=== PATIENT | female | born 1955 | race Caucasian/White ===

== ENCOUNTER 2016-11-24 17:34 | Emergency (ER) | payer OTHER ==
[~2016-11-24] VITALS: Ht 154.9 cm; Wt 70.3 kg
[~2016-11-24 17:34] MED LIST: LEVAQUIN500 MG PO; SYNTHROID0.1 MG PO
[2016-11-24 17:55] VITALS: BP_SYST 142; BP_SYST 152; BP_DIAS 76; BP_DIAS 90
--- NOTE | 2016-11-24 20:52 | NUR ---
PT TAKEN TO BED 1
--- NOTE | 2016-11-24 21:03 | NUR ---
61Y/F PATIENT PRESENTS TO ED WITH C/O HEADACHE X 1 DAY . PT STATES HEADCHE STARTED LAST NIGHT WITH BLURRED VISION. DENIES N/V/D; SKIN IS PINK/WARM/DRY; AAOX4 WITH EVEN AND STEADY GAIT; LUNGS CLEAR BL; HR EVEN AND REGULAR; PT DENIES ANY FEVER, CP, SOB, OR COUGH AT THIS TIME; PATIENT STATES PAIN OF 5/10 AT THIS TIME; VSS; PATIENT POSITIONED FOR COMFORT; HOB ELEVATED; BEDRAILS UP X2; BED DOWN. ER MD MADE AWARE OF PT STATUS.
--- NOTE | 2016-11-24 21:08 | NUR ---
Dr. Kline evaluating patient at bedside.
[2016-11-24] MEDS ORDERED: MECLIZINE 25 MG TAB PO ONE (21:25)
[2016-11-24] MEDS ORDERED: traMADol 50 MG TAB PO ONE (21:25)
--- NOTE | 2016-11-24 21:48 | NUR ---
PT RETURN FROM CT
--- NOTE | 2016-11-24 22:25 | NUR ---
Patient discharged with v/s stable. Written and verbal after care instructions given and explained. Patient alert, oriented and verbalized understanding of instructions. Ambulatory with steady gait. All questions addressed prior to discharge. ID band removed. Patient advised to follow up with PMD. Rx of MECLICINE 25 MG, MACROBID given. Patient educated on indication of medication including possible reaction and side effects. Opportunity to ask questions provided and answered.
[2016-11-24 22:35] VITALS: BP 127/70
== END 2016-11-24 22:25 | disposition home or self-care (01) ==
LOC: MED 17:34
DX: N39.0 Urinary tract infection, site not specified (principal); E07.9 Disorder of thyroid, unspecified; Z85.79 Personal history of other malignant neoplasms of lymphoid, hematopoietic and related tissues; Z88.0 Allergy status to penicillin; Z88.2 Allergy status to sulfonamides; Z88.5 Allergy status to narcotic agent; Z88.1 Allergy status to other antibiotic agents
CPT/HCPCS: 36415; 70450; 80053; 81001; 84484; 85025; 87086; 93005; 99285; J8597